=== PATIENT | female | born 1965 | race African-American/Black ===

== ENCOUNTER 2019-03-29 00:45 | Emergency (ER) | payer OTHER ==
[~2019-03-29] VITALS: Ht 170.2 cm; Wt 91.0 kg
[2019-03-29] MEDS ORDERED: KETOROLAC 60MG/2ML VIAL IM ONE (02:15)
[2019-03-29] MEDS ORDERED: HYDROCODONE/ACETAMINOPHEN 5/325MG TABLET PO ONE (04:15)
[2019-03-29 05:00] VITALS: BP 156/72
== END 2019-03-29 05:04 | disposition home or self-care (01) ==
LOC: ER 00:45
DX: M54.30 Sciatica, unspecified side (principal); I10 Essential (primary) hypertension; E11.9 Type 2 diabetes mellitus without complications; F17.210 Nicotine dependence, cigarettes, uncomplicated; Z85.038 Personal history of other malignant neoplasm of large intestine; Z90.49 Acquired absence of other specified parts of digestive tract
CPT/HCPCS: 72100; 72170; 96372; 99283; J1885

== ENCOUNTER 2019-05-25 08:12 | Emergency (ER) | payer OTHER ==
[~2019-05-25] VITALS: Ht 170.2 cm; Wt 91.0 kg
[2019-05-25] MEDS ORDERED: KETOROLAC 60MG/2ML VIAL IM STA (10:24)
[2019-05-25] MEDS ORDERED: HYDROCODONE/ACETAMINOPHEN 5/325MG TABLET PO STA (10:24)
[2019-05-25 11:26] LABS: CLARITY URINE CLEAR (CLEAR); COLOR URINE YELLOW (YELLOW); KETONES URINE NEGATIVE (NEGATIVE); LEUKOCYTE ESTERASE URINE NEGATIVE (NEGATIVE); NITRITE URINE NEGATIVE (NEGATIVE); OCCULT BLOOD URINE TRACE (NEGATIVE); PH URINE 5.5 (4.5-8.0); PROTEIN URINE 1+ (NEGATIVE); SPECIFIC GRAVITY URINE 1.035 (1.005-1.030); UROBILINOGEN URINE 0.2 E.U./dL (0.2-1.0)
[2019-05-25 11:57] VITALS: BP 150/88
== END 2019-05-25 11:46 | disposition home or self-care (01) ==
LOC: ER 08:12
DX: M54.42 Lumbago with sciatica, left side (principal); E11.9 Type 2 diabetes mellitus without complications; I10 Essential (primary) hypertension; Z85.9 Personal history of malignant neoplasm, unspecified
CPT/HCPCS: 81003; 96372; 99283; J1885